=== PATIENT | male | born 1950 | race Hispanic/Latino ===

== ENCOUNTER 2025-05-06 10:24 | Emergency (ER) | payer MEDICARE ==
[~2025-05-06] VITALS: Ht 167.6 cm; Wt 79.4 kg
[2025-05-06 10:40] VITALS: PULSE 76; RESP 16; TEMP 97.8
[2025-05-06] MEDS ORDERED: ACYCLOVIR800 MG PO (10:52)
[2025-05-06] MEDS ORDERED: NEURONTIN100 MG PO (10:53)
[2025-05-06 11:15] VITALS: BP 127/81; PULSE 70; RESP 16; O2SAT 99
== END 2025-05-06 11:10 | disposition home or self-care (01) ==
LOC: ER 10:32
DX: B02.29 Other postherpetic nervous system involvement (principal); I10 Essential (primary) hypertension; E78.5 Hyperlipidemia, unspecified
CPT/HCPCS: 99282